=== PATIENT | male | born 1970 | race Caucasian/White ===

== ENCOUNTER → 2021-06-14 | Outpatient (CLI) | payer BC, SELFPAY ==
--- NOTE | 2021-06-14 07:56 | ECHOD_ITS ---
Reason For Study: DYSPNEA Procedure This was a 2D Doppler, Color Flow transthoracic echocardiogram. The exam was of adequate technical quality. Exam performed in department. Left Ventricle Normal LV size. Sigmoid septum. Left ventricular systolic function is normal. The estimated ejection fraction is 70 %. Diastolic function is indeterminate. No regional wall motion abnormalities noted. Right Ventricle Normal RV size. Normal systolic function. Atria Normal left atrium. Normal right atrium. No doppler evidence for ASD. Bubble contrast study negative for right to left interatrial shunt. Mitral Valve There is no mitral annular calcification. Moderate diffuse mitral valve thickening. Myxomatous mitral valve. Moderate mitral valve prolapse, posterior leaflet. Moderate (2+) eccentric mitral valve insufficiency. Tricuspid Valve Normal tricuspid valve. Mild tricuspid valve insufficiency. Unable to estimate RV systolic pressure due to insufficient tricuspid regurgitant envelope. Aortic Valve Trisinus/trileaflet aortic valve. Normal aortic valve. Trivial aortic valve insufficiency. Pulmonic Valve The pulmonic valve is not well visualized. Mild (1+) pulmonic valve insufficiency. Great Vessels The aortic root is not well visualized. Pericardium/Pleural No pericardial effusion. Medication 22 gauge I.V. with prn adaptor inserted into right arm. Performed a rapid injection of agitated mix of 9 cc saline and 1cc air to assess for atrial septal defect. MMode/2D Measurements & Calculations LVIDd: 5.4 cm IVSd: 0.99 cm LAV(MOD-bp): 54.7 ml LVIDs: 3.0 cm LVPWd: 1.0 cm RVDd: 3.7 cm FS: 44.4 % LAV(MOD-bp) Indexed: 28.4 ml/m2 LAV(MOD-sp2): 66.5 ml LAV(MOD-sp4): 46.4 ml SV(MOD-sp4): 82.8 ml LVAd ap4: 33.1 cm2 LVAd ap2: 39.0 cm2 LVLd ap4: 8.0 cm LVLd ap2: 8.5 cm EDV(MOD-sp4): 114.9 ml EDV(MOD-sp2): 147.4 ml EDV(sp4-el): 116.1 ml EDV(sp2-el): 152.5 ml LVAs ap4: 14.6 cm2 LVAs ap2: 17.5 cm2 LVLs ap4: 5.7 cm LVLs ap2: 6.9 cm ESV(MOD-sp4): 32.1 ml ESV(MOD-sp2): 38.7 ml ESV(sp4-el): 31.5 ml ESV(sp2-el): 37.7 ml EF(MOD-sp4): 72.1 % EF(MOD-sp2): 73.7 % EF(sp4-el): 72.9 % SV(MOD-sp2): 108.7 ml SV(sp4-el): 84.6 ml LA A4 area: 16.9 cm2 LA dimension(2D): 3.9 cm RA A4 area: 18.4 cm2 Doppler Measurements & Calculations MV E max pritesh: 118.1 cm/sec Lat Peak E' Pritesh: 11.7 cm/sec Med Peak E' Pritesh: 8.4 cm/sec MV A max pritesh: 92.7 cm/sec E/E' lat: 10.1 E/E' med: 14.1 MV E/A: 1.3 Ao V2 max: 114.7 cm/sec AI max pritesh: 398.0 cm/sec LV V1 max: 125.6 cm/sec Ao max P.3 mmHg AI max P.3 mmHg LV V1 max P.3 mmHg PA V2 max: 115.4 cm/sec ECHO/Echo Complete Interpretation Summary Left ventricular systolic function is normal. The estimated ejection fraction is 70 %. Sigmoid septum. Myxomatous mitral valve. Moderate diffuse mitral valve thickening. Moderate mitral valve prolapse, posterior leaflet Moderate (2+) eccentric mitral valve insufficiency. Mild tricuspid valve insufficiency. Trivial aortic valve insufficiency. Mild (1+) pulmonic valve insufficiency. Unable to estimate RV systolic pressure due to insufficient tricuspid regurgita nt envelope. Diastolic function is indeterminate. Ordering Physician: Mauricio Morin Referring Physician: Mauricio Morin V Performed By: Viktoriya Arana RCS
== END | disposition home or self-care (01) ==
LOC: CVS 07:54
PROVIDERS: PCP Family Medicine; Referring Provider Internal Medicine Pulmonary Disease; Visit Provider Internal Medicine Pulmonary Disease
DX: R06.00 Dyspnea, unspecified (principal)
CPT/HCPCS: 93306; A4216